=== PATIENT | female | born 2000 | race Two or more races ===

== ENCOUNTER 2023-10-26 21:38 | Emergency (ER) | payer MEDICAID, OTHER ==
[~2023-10-26] VITALS: Ht 165.1 cm; Wt 84.7 kg
[2023-10-26 21:58] VITALS: BP 140/100; PULSE 103; RESP 16; TEMP 98.3; O2SAT 95
== END 2023-10-27 06:04 | disposition home or self-care (01) ==
LOC: ER 21:38
DX: S90.112A Contusion of left great toe without damage to nail, initial encounter (principal); E11.9 Type 2 diabetes mellitus without complications; X58.XXXA Exposure to other specified factors, initial encounter; Y93.89 Activity, other specified; Y92.89 Other specified places as the place of occurrence of the external cause; Y99.8 Other external cause status
CPT/HCPCS: 73630